=== PATIENT | female | born 1975 | race Caucasian/White ===

== ENCOUNTER 2020-04-03 10:26 | Emergency (ER) | payer MEDICAID ==
[~2020-04-03] VITALS: Ht 167.6 cm; Wt 81.8 kg
[2020-04-03] MEDS ORDERED: MORPHINE SULFATE 4 MG/ML, 1ML IVPush PRN (10:30)
[2020-04-03] MEDS ORDERED: SODIUM CHLORIDE FLUSH 10ML SYR IVF ONE (10:30)
[2020-04-03] MEDS ORDERED: KETOROLAC 30 MG/1 ML IVPush ONE (10:30)
[2020-04-03] MEDS ORDERED: METHOCARBAMOL 750 MG TABLET PO ONE (10:30)
[2020-04-03] MEDS ORDERED: METHOCARBAMOL 750 MG TABLET ONE (10:45)
[2020-04-03] MEDS ORDERED: MORPHINE SULFATE 4 MG/ML, 1ML ONE (10:45)
[2020-04-03] MEDS ORDERED: KETOROLAC 30 MG/1 ML ONE (10:45)
[2020-04-03 10:47] LABS: BASOPHILS # (AUTO) 0.03 x10^3/uL (0-0.1); BASOPHILS % (AUTO) 0 % (0-1); EOSINOPHILS # (AUTO) 0.11 x10^3/uL (0-0.4); EOSINOPHILS % (AUTO) 2 % (1-7); LYMPHOCYTES # (AUTO) 1.59 x10^3/uL (1-3.4); LYMPHOCYTES % (AUTO) 23 % (22-44); MD NO; MEAN CORPUSCULAR HEMOGLOBIN 25.5 pg (27.0-34.8); MEAN CORPUSCULAR VOLUME 79.8 fL (80-100); MEAN PLATELET VOLUME 7.7 fL (7.4-10.4); MONOCYTES # (AUTO) 0.52 x10^3/uL (0.2-0.8); MONOCYTES % (AUTO) 8 % (2-9); NEUTROPHILS # (AUTO) 4.58 x10^3/uL (1.8-6.8); NEUTROPHILS % (AUTO) 67 % (42-75); PLATELET COUNT 516 x10^3/uL (130-400); RED BLOOD COUNT 4.87 x10^6/uL (3.82-5.3); RED CELL DISTRIBUTION WIDTH 15.7 % (9.6-15.2)
[2020-04-03 10:54] LABS: ANION GAP 11 mmol/L (5-15); C-REACTIVE PROTEIN, QUANT 0.05 mg/dL (0.02-0.49); CALCIUM 8.6 mg/dL (8.5-10.1); CHLORIDE 105 mmol/L (98-107); CREATININE 0.71 mg/dL (0.55-1.02)
[2020-04-03] MEDS ORDERED: PLEASE ENTER HEIGHT AND WEIGHT MC SCH (11:00)
--- NOTE | 2020-04-03 13:56 | NUR ---
TASK RN: PT RESTING IN GURNEY W EYES CLOSED, EASILY ARROUSABLE TO VOICE. REPORTS IMPROVED PAIN THOUGH "ITS STILL THERE". DENIES NEED FOR FURTHER PAIN MEDICATIONS. DC EDUCATION PROVIDED, PT DEMONSTRATES UNDERSTANDING. PT AMBULATED STEADILY TO DC WITH RN. FRIEND TO TRANSPORT PT HOME.
[2020-04-03 13:57] VITALS: BP 149/90
== END 2020-04-03 13:59 | disposition home or self-care (01) ==
LOC: ED 11:53
DX: M54.16 Radiculopathy, lumbar region (principal)
CPT/HCPCS: 36415; 72131; 80048; 85025; 86140; 96374; 96375; 99284; J1885; J2270

== ENCOUNTER 2020-05-19 14:46 | Emergency (ER) | payer MEDICAID ==
[~2020-05-19] VITALS: Ht 170.2 cm; Wt 74.6 kg
--- NOTE | 2020-05-19 16:12 | NUR ---
POKER MANAGER: PT WALKED BACK FROM LOBBY TO ROOM AT THIS TIME. STEADY UPON AMBULATION.
[2020-05-19] MEDS ORDERED: MORPHINE SULFATE 4 MG/ML, 1ML IVPush PRN (17:00)
[2020-05-19] MEDS ORDERED: ONDANSETRON 2MG/ML, 2ML IVPush ONE (17:00)
[2020-05-19] MEDS ORDERED: SODIUM CHLORIDE FLUSH 10ML SYR IVF ONE (17:00)
[2020-05-19] MEDS ORDERED: ONDANSETRON 2MG/ML, 2ML ONE (17:12)
[2020-05-19] MEDS ORDERED: MORPHINE SULFATE 4 MG/ML, 1ML ONE (17:12)
[2020-05-19 17:14] LABS: ALBUMIN 3.8 g/dL (3.4-5.0); ANION GAP 8 mmol/L (5-15); CALCIUM 9.9 mg/dL (8.5-10.1); CHLORIDE 111 mmol/L (98-107)
[2020-05-19 17:25] LABS: BASOPHILS # (AUTO) 0.05 x10^3/uL (0-0.1); BASOPHILS % (AUTO) 1 % (0-1); EOSINOPHILS % (AUTO) 1 % (1-7); LYMPHOCYTES # (AUTO) 1.56 x10^3/uL (1-3.4); LYMPHOCYTES % (AUTO) 13 % (22-44); MD NO; MEAN CORPUSCULAR HEMOGLOBIN 25.1 pg (27.0-34.8); MEAN CORPUSCULAR HGB CONC 31.9 g/dL (32.4-35.8); MEAN CORPUSCULAR VOLUME 78.6 fL (80-100); MEAN PLATELET VOLUME 7.9 fL (7.4-10.4); MONOCYTES # (AUTO) 0.46 x10^3/uL (0.2-0.8); MONOCYTES % (AUTO) 4 % (2-9); NEUTROPHILS # (AUTO) 9.42 x10^3/uL (1.8-6.8); NEUTROPHILS % (AUTO) 81 % (42-75); PLATELET COUNT 523 x10^3/uL (130-400); RED BLOOD COUNT 4.81 x10^6/uL (3.82-5.3); RED CELL DISTRIBUTION WIDTH 15.3 % (9.6-15.2)
[2020-05-19] MEDS ORDERED: DIPH,PERTUSS(ACELL),TET VAC/PF 0.5 ML IM-VACC ONE ×2 (17:30→19:31)
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
[2020-05-19] MEDS ORDERED: LIDOCAINE-MPF 1%, 5ML INFIL ONE (18:00)
[2020-05-19] MEDS ORDERED: LIDOCAINE-MPF 1%, 5ML ONE (18:16)
[2020-05-19 19:25] VITALS: BP 140/82
== END 2020-05-19 19:27 | disposition home or self-care (01) ==
LOC: ED 16:57
DX: S01.511A Laceration without foreign body of lip, initial encounter (principal); K08.89 Other specified disorders of teeth and supporting structures; Y04.8XXA Assault by other bodily force, initial encounter; Y93.89 Activity, other specified; Y92.488 Other paved roadways as the place of occurrence of the external cause; Y99.8 Other external cause status
CPT/HCPCS: 12011; 36415; 64400; 70450; 70486; 80048; 82040; 84703; 85025; 90471; 90715; 96374; 96375; 99285; J2270; J2405

== ENCOUNTER 2020-11-30 17:41 | Emergency (ER) | payer MEDICAID ==
[~2020-11-30] VITALS: Ht 170.2 cm; Wt 72.8 kg
[2020-11-30 17:44] VITALS: BP 159/105
--- NOTE | 2020-11-30 18:49 | NUR ---
pt in bed with no signs or symptoms of acute distress noted respirations even and unlabored. pt with drain at r buttocks, noted minimal clear drainage. dressing site cdi. pt in bed with blankets around self, bed rails up bilaterally and call light within reach.
--- NOTE | 2020-11-30 19:27 | NUR ---
provider at bedside to assess pt in bed with no signs or symptoms of acute distress noted respirations even and unlabored
[2020-11-30] MEDS ORDERED: BACITRACIN ZINC OINT 500U/GM, 0.9 GM ONE (19:34)
--- NOTE | 2020-11-30 19:40 | NUR ---
pt provided some bandaids and some bacitracin for tke home pack, pt verbalizes understanding and agreement with plan of care for keeping site clean and dressed. educated on how to use rx medication and s/x to return. pt verbalizes understanding and agreement with plan of care. ready to dc.
== END 2020-11-30 19:45 | disposition home or self-care (01) ==
LOC: ED 19:01
DX: L02.31 Cutaneous abscess of buttock (principal); F17.200 Nicotine dependence, unspecified, uncomplicated; Z72.9 Problem related to lifestyle, unspecified
CPT/HCPCS: 99283